=== PATIENT | male | born 1985 | race Caucasian/White ===

== ENCOUNTER 2017-02-09 23:32 | Emergency (ER) | payer OTHER ==
[~2017-02-09] VITALS: Ht 177.8 cm; Wt 72.6 kg
--- NOTE | 2017-02-09 23:56 | NUR ---
BB SELF; RIGHT HAND PAIN S/P HITTING WALL. PT AMBULATORY TO ER BED 6. PT AOX3 RR EVEN AND UNLABORED. NO SOB NOTED. NAD NOTED. NO NVD AT THIS TIME. DR. BAJWA AT BEDSIDE FOR EVAL.
--- NOTE | 2017-02-10 00:49 | NUR ---
DR. BAJWA AT BEDSIDE SPEAKING TO PT REGARDING RESULTS.
[2017-02-10 01:31] VITALS: BP 128/89
--- NOTE | 2017-02-10 01:31 | NUR ---
Patient discharged to home in stable condition. Written and verbal after care instructions given. Patient verbalizes understanding of instruction. ambulatory with a steady gait. instructed not to drive. pt verbalize understanding.
== END 2017-02-10 01:32 | disposition home or self-care (01) ==
LOC: ER 23:37
DX: S62.306A Unspecified fracture of fifth metacarpal bone, right hand, initial encounter for closed fracture (principal); W22.01XA Walked into wall, initial encounter; Y92.89 Other specified places as the place of occurrence of the external cause; Y93.89 Activity, other specified; Y99.8 Other external cause status
CPT/HCPCS: 73130-TC; A4606; Q0162; Z7610